=== PATIENT | female | born 1970 | race Caucasian/White ===

== ENCOUNTER 2020-04-01 19:45 | Observation (INO) | payer OTHER ==
[~2020-04-01] VITALS: Ht 162.6 cm; Wt 108.0 kg
[2020-04-01] MEDS ORDERED: NITROGLYCERIN 2% OINT 1 GM PKT TOP ONE (20:15)
[2020-04-01 20:38] LABS: BASOPHILS # (AUTO) 0.1 (0.0-0.1); BASOPHILS % 0.7 % (0.0-1.0); EOSINOPHILS # (AUTO) 0.1 (0.0-0.4); EOSINOPHILS % 1.4 % (0.0-6.0); HEMATOCRIT 42.8 % (34.2-44.1); LYMPHOCYTES # (AUTO) 1.4 (1.0-3.2); LYMPHOCYTES % 13.6 % (18.0-39.1); MEAN CORPUSCULAR HEMOGLOBIN 30.5 pg (28-32); MEAN CORPUSCULAR HGB CONC 32.7 g/dL (31-35); MEAN CORPUSCULAR VOLUME 93.2 fL (81-99); MONOCYTES # (AUTO) 0.7 (0.2-0.8); MONOCYTES % 7.2 % (4.4-11.3); NEUTROPHILS # (AUTO) 7.8 (2.1-6.9); NEUTROPHILS % 76.7 % (38.7-80.0); PLATELET COUNT 265 x10e3/uL (140-360); RED BLOOD COUNT 4.59 x10e6/uL (3.6-5.1)
[2020-04-01 20:44] LABS: INR 0.87; PROTHROMBIN TIME 12.3 seconds (11.9-14.5)
[2020-04-01 20:45] LABS: PARTIAL THROMBOPLASTIN TIME 29.7 seconds (23.8-35.5)
[2020-04-01 20:54] LABS: ALBUMIN 4.8 g/dL (3.5-5.0); ALBUMIN/GLOBULIN RATIO 1.7 (0.8-2.0); CALCIUM 9.4 mg/dL (8.4-10.2); CREATININE, SERUM 1.09 mg/dL (0.57-1.11)
[2020-04-01] MEDS ORDERED: VENLAFAXINE HCL75 MG PO (22:10)
[2020-04-01] MEDS ORDERED: MORPHINE SULFATE 2 MG/ML SYR 1ML IV PRN (22:30)
[2020-04-01] MEDS ORDERED: ONDANSETRON HCL INJ 2MG/ML 2ML 2 MG/ML VIAL IV PRN (22:30)
[2020-04-01] MEDS ORDERED: SODIUM CHLORIDE FLUSH 10 ML SYR INJ PRN (22:30)
[2020-04-01] MEDS: NITROGLYCERIN 2% OINT 1 GM PKT TOP SCH (23:10)
[2020-04-01] MEDS: FAMOTIDINE 20 MG TAB PO SCH (23:16)
[2020-04-01] MEDS: ACETAMINOPHEN 325 MG TAB PO PRN (23:17)
[2020-04-02] VITALS (7 sets, daily range): BP systolic 105–125; BP diastolic 60–72
[2020-04-02] MEDS: NITROGLYCERIN 2% OINT 1 GM PKT TOP SCH ×3 (05:09→18:00)
[2020-04-02] MEDS: ACETAMINOPHEN 325 MG TAB PO PRN (05:27)
[2020-04-02] MEDS ORDERED: IBUPROFEN 200 MG TAB PO ONE (08:00)
[2020-04-02 08:45] LABS: CHOL/HDL RATIO 3.1 (3.0-3.6)
[2020-04-02] MEDS ORDERED: ASPIRIN 81 MG ENTERIC COATED PO SCH (09:00)
[2020-04-02 09:28] LABS: CREATINE KINASE MB 0.8 ng/mL (0-5.0)
[2020-04-02] MEDS: FAMOTIDINE 20 MG TAB PO SCH (11:30)
[2020-04-02 15:10] LABS: CREATINE KINASE MB 0.8 ng/mL (0-5.0)
[2020-04-03] MEDS ORDERED: VENLAFAXINE HCL 75 MG TAB PO SCH (09:00)
== END 2020-04-02 18:46 | disposition home or self-care (01) ==
LOC: ER 20:42 → ERHOLD 22:18 → MED/SURG2 04-02 01:07
PROVIDERS: ADMIT Internal Medicine; ATTEND Internal Medicine
DX: R07.89 Other chest pain (principal); E66.01 Morbid (severe) obesity due to excess calories; U07.0 Vaping-related disorder; R51 Headache; Z68.41 Body mass index [BMI] 40.0-44.9, adult; E86.0 Dehydration; D72.829 Elevated white blood cell count, unspecified; R09.02 Hypoxemia; R53.1 Weakness; T46.3X5A Adverse effect of coronary vasodilators, initial encounter; Z11.59 Encounter for screening for other viral diseases
CPT/HCPCS: 36415 ×2; 71045; 80053; 80061; 82550 ×2; 82553 ×2; 83880; 84484 ×2; 85025; 85610; 85730; 93005; 99284; G0378 ×2; U0002